=== PATIENT | female | born 1995 | race Caucasian/White ===

== ENCOUNTER 2017-05-10 20:00 | Emergency (ER) | payer OTHER ==
[~2017-05-10] VITALS: Ht 152.4 cm; Wt 91.5 kg
[~2017-05-10 20:00] MED LIST: PREN1TAB17 PO
[2017-05-10 20:21] VITALS: Ht 152.4 cm; Wt 91.5 kg
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
[2017-05-10] MEDS ORDERED: CYCL-319 PO (23:59)
[2017-05-10] MEDS ORDERED: HYDR-906 PO (23:59)
[2017-05-11] MEDS ORDERED: IBUPROFEN 600 MG TAB PO ONE
== END 2017-05-11 00:29 | disposition home or self-care (01) ==
LOC: FTE 20:00
DX: S20.212A Contusion of left front wall of thorax, initial encounter (principal); S00.93XA Contusion of unspecified part of head, initial encounter; V49.40XA Driver injured in collision with unspecified motor vehicles in traffic accident, initial encounter
CPT/HCPCS: 71010; Z7502